=== PATIENT | female | born 1985 | race Caucasian/White ===

== ENCOUNTER → 2018-09-21 | Emergency (ER) | payer BC ==
[~2018-09-21] MED LIST: Famotidine 20 MG TAB ONE; hydrOXYzine 25 MG TAB ONE; predniSONE 20 MG TAB ONE; traMADol HCl 50 MG TAB ONE
== END ==
LOC: BURERS 22:02
DX: T63.461A Toxic effect of venom of wasps, accidental (unintentional), initial encounter (principal); L23.7 Allergic contact dermatitis due to plants, except food; F41.9 Anxiety disorder, unspecified
CPT/HCPCS: 99282; J7512